=== PATIENT | female | born 1935 | race Caucasian/White ===

== ENCOUNTER → 2016-03-24 | Outpatient (CLI) | payer MEDICARE ==
[~2016-03-24] MED LIST: AVASINJ IV; BEVA100P INJ; BUPR100CR PO; BUPR150T3 PO; CYAN100025 IM; CYAN1000P SQ; GLUC500C3 PO; LEVO100T5 PO; LEXA10TA PO; LEXA5TAB PO; LOSA25TA PO; METHTAB PO; METO25 PO; MULT1CHW70 PO; SYNT88TA PO; estratest PO
--- NOTE | 2016-03-25 09:59 | RSPPFT ---
DATE OF PROCEDURE: 03/24/16 COMMENTS: Spirometry with FVC of 2.1 predicted 2.7, FEV1 of 1.5 predicted 1.9, FEV1/FVC ratio 70% predicted 88%. The FEF 25-75 is 0.9 predicted 2.1. Mild changes are noticed post-bronchodilator acutely. Air trapping is present with RV at 2.6 predicted 2.0. DLCO is within the predicted range. IMPRESSION: On the basis of the above, patient has a mild obstructive defect with responsiveness to acutely inhaled bronchodilator.
== END ==
LOC: HRSP 10:45
PROVIDERS: ATTEND Internal Medicine Pulmonary Disease
DX: J98.4 Other disorders of lung (principal)
CPT/HCPCS: 94060; 94620; 94726; 94729

== ENCOUNTER 2016-04-02 04:25 | Emergency (ER) | payer MEDICARE ==
[~2016-04-02] VITALS: Ht 165.1 cm; Wt 80.0 kg
[~2016-04-02 04:25] MED LIST changes: -BEVA100P INJ; -BUPR100CR PO; -CYAN1000P SQ; -LEVO100T5 PO; -LEXA10TA PO; -LOSA25TA PO; -MULT1CHW70 PO; -estratest PO
[2016-04-02 04:28] VITALS: BP 147/74; PULSE 78; RESP 16; TEMP 98; O2SAT 98
[2016-04-02] MEDS ORDERED: GLUC500C3 PO (04:50)
[2016-04-02] MEDS ORDERED: LOSA25TA PO (04:50)
[2016-04-02] MEDS ORDERED: MULT1CHW70 PO (04:50)
[2016-04-02] MEDS ORDERED: CYAN1000P SQ (04:50)
[2016-04-02] MEDS ORDERED: BUPR100CR PO (04:50)
[2016-04-02] MEDS ORDERED: LEXA10TA PO (04:50)
[2016-04-02] MEDS ORDERED: LEVO100T5 PO (04:50)
[2016-04-02] MEDS ORDERED: estratest PO (04:50)
[2016-04-02] MEDS ORDERED: BEVA100P INJ (04:50)
[2016-04-02] MEDS: ASPIRIN 81 MG CHEW TAB CHEW ONE ×2 (05:15→05:29)
[2016-04-02] MEDS ORDERED: SODIUM CHLORIDE 0.9% FLUSH 5 ML FLUSH IVF PRN (05:15)
[2016-04-02 05:40] LABS: AUTOMATED NEUTROPHIL # 5.4 TH/MM3 (1.8-7.7); BASOPHIL % 0.4 % (0.0-2.0); EOSINOPHIL # 0.1 TH/MM3 (0-0.4); EOSINOPHIL % 0.8 % (0.0-4.0); HEMATOCRIT 39.8 % (35.0-46.0); HEMO FLAGS DIFF FINAL; LYMPH % 27.1 % (9.0-44.0); LYMPHOCYTE # 2.3 TH/MM3 (1.0-4.8); MEAN CELL VOLUME 89.3 FL (80.0-100.0); MEAN CORPUSCULAR HEMOGLOBIN 30.3 PG (27.0-34.0); MEAN CORPUSCULAR HGB CONC 33.9 % (32.0-36.0); MONO % 7.3 % (0.0-8.0); NEUT % 64.4 % (16.0-70.0); PLATELET COUNT 249 TH/MM3 (150-450); RED BLOOD COUNT 4.45 MIL/MM3 (4.00-5.30); RED CELL DISTRIBUTION WIDTH 14.9 % (11.6-17.2); WHITE BLOOD COUNT 8.5 TH/MM3 (4.0-11.0)
--- NOTE | 2016-04-02 05:45 | RADRPT ---
EXAM DATE/TIME: 04/02/2016 05:25 [facility] COMPARISON: CHEST SINGLE AP, August 01, 2015, 15:56. INDICATIONS : Mid-sternal chest pain x 1 day. MEDICAL HISTORY : Thyroid disease, asthma SURGICAL HISTORY : Hysterectomy. Breast BX ENCOUNTER: Initial ACUITY: 1 day PAIN SCORE: 7/10 LOCATION: Bilateral chest FINDINGS: A single view of the chest demonstrates the lungs to be symmetrically aerated without evidence of mas s, infiltrate or effusion. The cardiomediastinal contours are unremarkable. Osseous structures are intact.CONCLUSION: No acute cardiopulmonary disease demonstrated. Saji Montana MD on April 02, 2016 at 5:43 Board Certified Radiologist. This report was verified electronically.
[2016-04-02 05:54] VITALS: O2SAT 97
[2016-04-02 06:01] LABS: ALKALINE PHOSPHATASE 79 U/L (45-117); TOTAL BILIRUBIN ADULT 0.8 MG/DL (0.2-1.0)
[2016-04-02 06:05] LABS: APTT (PATIENT) 23.8 SEC (24.3-30.1); INTERNATIONAL NORMALIZED RATIO 0.9 RATIO; PROTHROMBIN TIME - PATIENT 9.7 SEC (9.8-11.6)
[2016-04-02 06:23] LABS: ALT (GPT) 25 U/L (10-53); ANION GAP 8 MEQ/L (5-15); AST (GOT) 17 U/L (15-37); BICARBONATE 26.3 MEQ/L (21.0-32.0); BLOOD UREA NITROGEN 15 MG/DL (7-18); CHLORIDE 106 MEQ/L (98-107); GLOMERULAR FILTRATION RATE 52 ML/MIN (>89); MAGNESIUM 2.3 MG/DL (1.5-2.5); SODIUM (NA) 140 MEQ/L (136-145)
[2016-04-02 06:24] LABS: POTASSIUM 3.9 MEQ/L (3.5-5.1)
--- NOTE | 2016-04-02 06:35 | PD ---
HPI Chief Complaint: Chest Pain Time Seen by Provider: 04:58 Travel History International Travel<30 days: No Contact w/Intl Traveler<30days: No Traveled to known affect area: No History of Present Illness HPI This is a 80-year-old female who presents to the emergency department with 1 day of left-sided chest pressure, constant, mild, radiating to her left back. Patient denies any association with exertion, movement or eating. She initially thought it was indigestion but it persisted and continued into the speech therapist early intervention and she remembers reading that heart attacks often happen in the speech therapist early intervention and she came to the emergency department to be evaluated. She says that she was observed mid last year in the hospital for chest pain and had a normal stress test at that time. She follows with Dr. Hernandes as an outpatient. She has a history of hypertension. She's never smoked. PFSH Past Medical History Depression: Yes Cancer: No Cardiovascular Problems: Yes (HTN) Diabetes: No Diminished Hearing: No Endocrine: No Glaucoma: No Genitourinary: No Hepatitis: No Hiatal Hernia: No Hypertension: No Immune Disorder: No Musculoskeletal: No Neurologic: No Psychiatric: No Reproductive: No Respiratory: Yes (ASTHMA) Immunizations Current: Yes Thyroid Disease: Yes (HYPOTHYROID) Menopausal: Yes Past Surgical History Abdominal Surgery: No AICD: No Cardiac Surgery: No Ear Surgery: No Endocrine Surgery: No Eye Surgery: Yes (BILAT. CATARACTS) Genitourinary Surgery: No Gynecologic Surgery: Yes (HYSTERECTOMY) Hysterectomy: Yes Joint Replacement: No Neurologic Surgery: No Oral Surgery: No Pacemaker: No Thoracic Surgery: No Other Surgery: Yes (SINUS, BREAST BX.) Social History Alcohol Use: Yes (RARE) Tobacco Use: No Substance Use: No Allergies-Medications (Allergen,Severity, Reaction): Coded Allergies: Biaxin (Verified Allergy, Intermediate, RASH, 04/02/16) Talwin (Verified Adverse Reaction, Severe, HALLUCINATIONS, 04/02/16) Aspirin (Verified Adverse Reaction, Intermediate, 04/02/16) Reported Meds & Prescriptions Reported Meds & Active Scripts Active Reported Multivitamin Adult (Multiple Vitamins W/ Minerals) 1 Chw Chw 1 Chew PO DAILY Avastin Inj (Bevacizumab) 100 Mg/4 Ml Inj 1.25 Each INJ 3 MO PRN Losartan (Losartan Potassium) 25 Mg Tab 25 Mg PO DAILY Cyanocobalamin Inj (Cyanocobalamin) 1,000 Mcg/Ml Inj 1,000 Mcg SQ Q30D [estratest] 2 Tab PO DAILY Glucosamine (Glucosamine Sulfate) 500 Mg Cap 500 Mg PO DAILY Lexapro (Escitalopram Oxalate) 10 Mg Tab 10 Mg PO DAILY Wellbutrin SR 12 HR (Bupropion HCl) 100 Mg Tab 100 Mg PO DAILY Levothyroxine (Levothyroxine Sodium) 100 Mcg Tab 100 Mcg PO DAILY Review of Systems Except as stated in HPI: all other systems reviewed are Neg Physical Exam Narrative GENERAL:Well appearing, no acute distress SKIN: Warm and dry. HEAD: Atraumatic. Normocephalic. EYES: Pupils equal and round. No injection or drainage. ENT: Moist mucous membranes NECK: Trachea midline. CARDIOVASCULAR: Regular rate and rhythm. No murmur appreciated. RESPIRATORY: Clear to auscultation. Breath sounds equal bilaterally. GASTROINTESTINAL: Abdomen soft, non-tender, nondistended. MUSCULOSKELETAL: No obvious deformities. NEUROLOGICAL: Awake and alert. No obvious cranial nerve deficits. Moving all extremities. PSYCHIATRIC: Appropriate mood and affect; insight and judgment normal. Data Data Last Documented VS Vital Signs Date Time Temp Pulse Resp B/P Pulse Ox O2 Delivery O2 Flow Rate FiO2 04/02/16 05:54 98 Nasal Cannula 2 04/02/16 04:28 98.0 78 16 147/74 Orders Electrocardiogram (04/02/16 05:12) Complete Blood Count With Diff (04/02/16 05:12) Comprehensive Metabolic Panel (04/02/16 05:12) Magnesium (Mg) (04/02/16 05:12) Prothrombin Time / Inr (Pt) (04/02/16 05:12) Act Partial Throm Time (Ptt) (04/02/16 05:12) Troponin I (04/02/16 05:12) Chest, Single Ap (04/02/16 05:12) Ecg Monitoring (04/02/16 05:12) Bilateral Bp Monitoring (04/02/16 05:12) Iv Access Insert/Monitor (04/02/16 05:12) Oximetry (04/02/16 05:12) Oxygen Administration (04/02/16 05:12) Sodium Chloride 0.9% Flush (Ns Flush) (04/02/16 05:15) Aspirin Chew (Aspirin Chew) (04/02/16 05:15) Labs Laboratory Tests Test 04/02/16 05:15 White Blood Count 8.5 TH/MM3 Red Blood Count 4.45 MIL/MM3 Hemoglobin 13.5 GM/DL Hematocrit 39.8 % Mean Corpuscular Volume 89.3 FL Mean Corpuscular Hemoglobin 30.3 PG Mean Corpuscular Hemoglobin 33.9 % Concent Red Cell Distribution Width 14.9 % Platelet Count 249 TH/MM3 Mean Platelet Volume 7.7 FL Neutrophils (%) (Auto) 64.4 % Lymphocytes (%) (Auto) 27.1 % Monocytes (%) (Auto) 7.3 % Eosinophils (%) (Auto) 0.8 % Basophils (%) (Auto) 0.4 % Neutrophils # (Auto) 5.4 TH/MM3 Lymphocytes # (Auto) 2.3 TH/MM3 Monocytes # (Auto) 0.6 TH/MM3 Eosinophils # (Auto) 0.1 TH/MM3 Basophils # (Auto) 0.0 TH/MM3 CBC Comment DIFF FINAL Differential Comment Prothrombin Time 9.7 SEC Prothromb Time International 0.9 RATIO Ratio Activated Partial 23.8 SEC Thromboplast Time Sodium Level 140 MEQ/L Potassium Level 3.9 MEQ/L Chloride Level 106 MEQ/L Carbon Dioxide Level 26.3 MEQ/L Anion Gap 8 MEQ/L Blood Urea Nitrogen 15 MG/DL Creatinine 1.03 MG/DL Estimat Glomerular Filtration 52 ML/MIN Rate Random Glucose 110 MG/DL Calcium Level 8.9 MG/DL Magnesium Level 2.3 MG/DL Total Bilirubin 0.8 MG/DL Aspartate Amino Transf 17 U/L (AST/SGOT) Alanine Aminotransferase 25 U/L (ALT/SGPT) Alkaline Phosphatase 79 U/L Troponin I LESS THAN 0.02 NG/ML Total Protein 6.7 GM/DL Albumin 3.5 GM/DL [facility] Medical Decision Making Medical Screen Exam Complete: Yes Emergency Medical Condition: Yes Interpretation(s) EKG: Normal sinus rhythm, right bundle branch block unchanged from prior EKG No leukocytosis Electrolytes are reassuring Troponin is normal Chest x-ray: No acute process Differential Diagnosis Acute coronary syndrome, pneumonia, pulmonary embolism, GERD Narrative Course This is a 80-year-old female who presents to the emergency department with chest pain. She reports her chest pain is been constant over the past 12 hours. She had a stress test on August 02, 2015 which was normal. She was placed on a monitor and an IV was established. Labs are obtained which are reassuring with a normal troponin. Chest x-rays unremarkable and EKG is nonischemic and unchanged from prior. I think it's very unlikely that this reflects acute coronary syndrome given the patient has had a recent normal stress test within the past year, no new EKG changes and her chest pain has been constant for 12 hours in the setting of a normal troponin. 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 Diagnosis Primary Impression: Chest pain Qualified Code: R07.9 - Chest pain, unspecified type Patient Instructions: General Instructions Additional Instructions: If you develop severe chest pain, shortness of breath, sweating, lightheadedness , dizziness or difficulty breathing return to the emergency department immediately. Followup with your primary care physician in 2-3 days if your symptoms are not resolved. Med/Other Pt SpecificInfo: No Change to Meds Disposition: 01 DISCHARGE HOME Condition: Stable Lucero Encarnacion MD Apr 02, 2016 06:35
--- NOTE | 2016-04-02 13:14 | EKG ---
Date Performed: 04/02/2016 Time Performed: 04:43:12 PTAGE: 80 years EKG: Sinus rhythm RIGHT BUNDLE BRANCH BLOCK POSSIBLE LATERAL MYOCARDIAL INFARCTION ABNORMAL ECG Compared to prior trac ing no significant change PREVIOUS TRACING : 08/01/2015 21.48 DOCTOR: Ketan Spence Interpretating Date/Time 04/02/2016 13:12:11
== END 2016-04-02 07:15 | disposition home or self-care (01) ==
LOC: NEPC 04:25
DX: R07.89 Other chest pain (principal); R94.31 Abnormal electrocardiogram [ECG] [EKG]; I10 Essential (primary) hypertension
CPT/HCPCS: 71010; 80053; 83735; 84484; 85025; 85610; 85730; 93005

== ENCOUNTER 2016-11-25 08:59 | Inpatient (IN) | payer MEDICARE ==
[~2016-11-25] VITALS: Ht 165.1 cm; Wt 78.0 kg
[~2016-11-25 08:59] MED LIST changes: -AVASINJ IV; +BEVA100P INJ; +BUPR100CR PO; -BUPR150T3 PO; -CYAN100025 IM; +CYAN1000P SQ; +LEVO100T5 PO; +LEXA10TA PO; -LEXA5TAB PO; +LOSA25TA PO; -METHTAB PO; -METO25 PO; +MULT1CHW70 PO; -SYNT88TA PO; +estratest PO
[2016-11-25] MEDS ORDERED: IOHEXOL 350 MG/ML 10 ML VIAL (for RAD DIAG) IVCONTRAST ONE (09:00)
[2016-11-25 09:05] VITALS: BP 163/88; PULSE 74; RESP 16; TEMP 98.4; O2SAT 99
[2016-11-25 09:12] VITALS: BP 165/76; PULSE 67; RESP 18; TEMP 97.8; O2SAT 99
[2016-11-25] MEDS ORDERED: ESTR2TAB PO (09:25)
[2016-11-25] MEDS ORDERED: LEVO112T2 PO (09:25)
[2016-11-25] MEDS ORDERED: GLUC100017 PO (09:25)
[2016-11-25] MEDS ORDERED: RANI150T PO (09:29)
[2016-11-25] MEDS ORDERED: MONT10TA2 PO (09:31)
[2016-11-25] MEDS ORDERED: VITA2000 PO (09:31)
[2016-11-25] MEDS ORDERED: IPRA17I INH (09:32)
[2016-11-25] MEDS ORDERED: SODIUM CHLOR 0.9% 1000 ML INJ 1,000 ML IV ONE (09:45)
[2016-11-25 09:51] LABS: AUTOMATED NEUTROPHIL # 6.3 TH/MM3 (1.8-7.7); BASOPHIL # 0.1 TH/MM3 (0-0.2); BASOPHIL % 0.8 % (0.0-2.0); EOSINOPHIL # 0.1 TH/MM3 (0-0.4); EOSINOPHIL % 1.8 % (0.0-4.0); HEMATOCRIT 41.1 % (35.0-46.0); HEMO FLAGS DIFF FINAL; LYMPH % 12.9 % (9.0-44.0); LYMPHOCYTE # 1.1 TH/MM3 (1.0-4.8); MEAN CELL VOLUME 91.5 FL (80.0-100.0); MEAN CORPUSCULAR HEMOGLOBIN 30.8 PG (27.0-34.0); MEAN CORPUSCULAR HGB CONC 33.7 % (32.0-36.0); MONO % 7.8 % (0.0-8.0); NEUT % 76.7 % (16.0-70.0); PLATELET COUNT 326 TH/MM3 (150-450); RED BLOOD COUNT 4.49 MIL/MM3 (4.00-5.30); RED CELL DISTRIBUTION WIDTH 15.7 % (11.6-17.2); WHITE BLOOD COUNT 8.3 TH/MM3 (4.0-11.0)
--- NOTE | 2016-11-25 09:55 | PD ---
HPI Chief Complaint: Abdominal Pain Time Seen by Provider: 09:15 Travel History International Travel<30 days: No Contact w/Intl Traveler<30days: No Traveled to known affect area: No History of Present Illness HPI Mrs. Torres is a 81yoF with a past medical history of hypertension presenting to the ED with abdominal pain of about 2 weeks' duration. She states that her pain started 12 days ago. She went to see her PCP on that next day who referred her to GI. An endoscopy was performed 8 days ago which found a hiatal hernia but no other abnormalities. She was started on omeprazole and ranitidine. She states that she has been unable to keep the medication down. She describes her abdominal pain as a 10 out of 10 in her epigastric region radiating to her back. She describes it as a hard pain and constant, worse with eating and better with vomiting. Vomiting is clear, nonbloody, nonbilious. She last had a meal last night but it did not stay down. She has really been unable to eat for about a week. No fevers or chills, no diarrhea, no dizziness, no lightheadedness, no history of alcohol use. PFSH Past Medical History Depression: Yes Cancer: No Cardiovascular Problems: Yes (HTN ) Diabetes: No Diminished Hearing: No Endocrine: No GERD: Yes Glaucoma: No Genitourinary: No Hepatitis: No Hiatal Hernia: Yes Hypertension: No Immune Disorder: No Musculoskeletal: No Neurologic: No Psychiatric: No Reproductive: No Respiratory: Yes (ASTHMA ) Immunizations Current: Yes Thyroid Disease: Yes (HYPOTHYROID) Tetanus Vaccination: < 5 Years Influenza Vaccination: Yes ?: Not Menopausal: Yes Past Surgical History Abdominal Surgery: No AICD: No Cardiac Surgery: No Ear Surgery: No Endocrine Surgery: No Eye Surgery: Yes (BILAT. CATARACTS) Genitourinary Surgery: No Gynecologic Surgery: Yes (HYSTERECTOMY) Hysterectomy: Yes Joint Replacement: No Neurologic Surgery: No Oral Surgery: No Pacemaker: No Thoracic Surgery: No Other Surgery: Yes (SINUS, BREAST BX.) Social History Alcohol Use: Yes (RARE) Tobacco Use: No Substance Use: No Allergies-Medications (Allergen,Severity, Reaction): Coded Allergies: clarithromycin (Unverified Allergy, Intermediate, RASH, 11/25/16) pentazocine (Unverified Adverse Reaction, Severe, HALLUCINATIONS, 11/25/16) aspirin (Unverified Adverse Reaction, Intermediate, 11/25/16) Reported Meds & Prescriptions Reported Meds & Active Scripts Active Reported Atrovent HFA 12.9 GM Inh (Ipratropium [place]) 17 Mcg/Actuation Aer 2 Puff INH Q6HR PRN Vitamin D3 (Cholecalciferol) 2,000 Unit Cap 4,000 Units PO DAILY Singulair (Montelukast Sodium) 10 Mg Tab 10 Mg PO HS Ranitidine (Ranitidine HCl) 150 Mg Tab 150 Mg PO BID Estradiol 2 Mg Tab 2 Mg PO DAILY Glucosamine (Glucosamine Sulfate) 1,000 Mg Cap Unknown Dose PO DAILY Levothyroxine (Levothyroxine Sodium) 112 Mcg Tab 112 Mcg PO DAILY Avastin Inj (Bevacizumab) 100 Mg/4 Ml Inj 1.25 Each INJ 3 MO PRN Losartan (Losartan Potassium) 25 Mg Tab 25 Mg PO DAILY Cyanocobalamin Inj (Cyanocobalamin) 1,000 Mcg/Ml Inj 1,000 Mcg SQ Q30D Lexapro (Escitalopram Oxalate) 10 Mg Tab 10 Mg PO DAILY Review of Systems General / Constitutional: No: Fever, Chills Eyes: No: Blurred Vision HENT: Positive: Other (dry mouth), No: Lightheadedness Cardiovascular: Positive: Chest Pain or Discomfort (from vomiting) Respiratory: Positive: Shortness of Breath (asthma) Gastrointestinal: Positive: Nausea, Vomiting, No: Diarrhea, Constipation, Changes in Bowel Habits Neurologic: No: Dizziness Physical Exam Narrative GENERAL: Well-nourished, well-developed patient laying in bed, in no acute distress. SKIN: Warm and dry. HEAD: Normocephalic. EYES: No scleral icterus. No injection or drainage. THROAT: erythematous NECK: Supple, trachea midline. No JVD or lymphadenopathy. CARDIOVASCULAR: Regular rate and rhythm without murmurs, gallops, or rubs. RESPIRATORY: Breath sounds equal bilaterally. No accessory muscle use. GASTROINTESTINAL: Abdomen soft, exquisitely tender at RUQ, tenderness to palpation at epigastric and LUQ regions, nondistended. EXTREMITIES: No cyanosis, or edema. NEUROLOGICAL: Awake, alert. Non-focal. Data Data Last Documented VS Vital Signs Date Time Temp Pulse Resp B/P (MAP) Pulse Ox O2 Delivery O2 Flow Rate FiO2 11/25/16 09:12 97.8 67 18 165/76 (105) 99 Orders Orders Complete Blood Count With Diff (11/25/16 09:27) Comprehensive Metabolic Panel (11/25/16 09:27) Lipase (11/25/16 09:27) Sodium Chlor 0.9% 1000 Ml Inj (Ns 1000 M (11/25/16 09:45) Ct Abd/Pel W Iv Contrast(Rout) (11/25/16 ) Oral Contrast - Adult (11/25/16 09:51) Diatrizoate Liq ( Gastroview Liq) (11/25/16 09:56) Prochlorperazine Inj (Compazine Inj) (11/25/16 10:30) Prochlorperazine Inj (Compazine Inj) (11/25/16 10:45) Iohexol 350 Inj (Omnipaque 350 Inj) (11/25/16 09:00) Labs Laboratory Tests Test 11/25/16 09:30 White Blood Count 8.3 TH/MM3 Red Blood Count 4.49 MIL/MM3 Hemoglobin 13.8 GM/DL Hematocrit 41.1 % Mean Corpuscular Volume 91.5 FL Mean Corpuscular Hemoglobin 30.8 PG Mean Corpuscular Hemoglobin Concent 33.7 % Red Cell Distribution Width 15.7 % Platelet Count 326 TH/MM3 Mean Platelet Volume 8.1 FL Neutrophils (%) (Auto) 76.7 % Lymphocytes (%) (Auto) 12.9 % Monocytes (%) (Auto) 7.8 % Eosinophils (%) (Auto) 1.8 % Basophils (%) (Auto) 0.8 % Neutrophils # (Auto) 6.3 TH/MM3 Lymphocytes # (Auto) 1.1 TH/MM3 Monocytes # (Auto) 0.6 TH/MM3 Eosinophils # (Auto) 0.1 TH/MM3 Basophils # (Auto) 0.1 TH/MM3 CBC Comment DIFF FINAL Differential Comment Blood Urea Nitrogen 13 MG/DL Creatinine 0.85 MG/DL Random Glucose 129 MG/DL Total Protein 7.6 GM/DL Albumin 3.6 GM/DL Calcium Level 9.6 MG/DL Alkaline Phosphatase 665 U/L Aspartate Amino Transf (AST/SGOT) 886 U/L Alanine Aminotransferase (ALT/SGPT) 1269 U/L Total Bilirubin 6.4 MG/DL Sodium Level 133 MEQ/L Potassium Level 4.0 MEQ/L Chloride Level 98 MEQ/L Carbon Dioxide Level 27.7 MEQ/L Anion Gap 7 MEQ/L Estimat Glomerular Filtration Rate 65 ML/MIN Lipase 84 U/L [facility] Medical Decision Making Medical Screen Exam Complete: Yes Emergency Medical Condition: Yes Differential Diagnosis Cholecystitis vs pancreatitis vs gastroenteritis Narrative Course 81-year-old WF presenting with abdominal pain and vomiting 12 days duration. Physical exam shows tenderness in the right upper, epigastric and left upper quadrant regions of her abdomen. Lipase NL, elevated LFTs and Alk phos 1 L bolus CBC, CMP, lipase CT abdomen and pelvis with contrast Compazine for nausea Discussed with/Signed out to Chinyere Dao MD R1 Nov 25, 2016 09:55
[2016-11-25] MEDS ORDERED: DIATRIZOATE MEGLUM/DIATRIZOATE SOD 9 ML CUP ONE (09:56)
[2016-11-25 10:21] LABS: ANION GAP 7 MEQ/L (5-15); AST (GOT) 886 U/L (15-37); BICARBONATE 27.7 MEQ/L (21.0-32.0); BLOOD UREA NITROGEN 13 MG/DL (7-18); CHLORIDE 98 MEQ/L (98-107); GLOMERULAR FILTRATION RATE 65 ML/MIN (>89); SODIUM (NA) 133 MEQ/L (136-145)
[2016-11-25 10:30] LABS: ALKALINE PHOSPHATASE 665 U/L (45-117); ALT (GPT) 1269 U/L (10-53); TOTAL BILIRUBIN ADULT 6.4 MG/DL (0.2-1.0)
[2016-11-25] MEDS ORDERED: PROCHLORPERAZINE INJ 10 MG/2 ML VIAL IV PUSH ONE ×2 (10:30→10:45)
[2016-11-25] MEDS ORDERED: PHENYLEPH/NS 1000 MCG/10 ML SYR IV ONE (12:00)
[2016-11-25] MEDS ORDERED: MIDAZOLAM HCL 2 MG/2 ML VIAL IV ONE (12:00)
[2016-11-25] MEDS ORDERED: PROPOFOL 200 MG/20 ML AMP IV ONE (12:00)
--- NOTE | 2016-11-25 12:05 | RADRPT ---
EXAM DATE/TIME: 11/25/2016 11:36 [facility] COMPARISON: CT THORAX W/O CONTRAST, May 28, 2014, 9:40. INDICATIONS : Upper abdominal pain, nausea and vomiting. IV CONTRAST: 98 cc Omnipaque 350 (iohexol) IV ORAL CONTRAST: No oral contrast ingested. RADIATION DOSE: 10.27 CTDIvol (mGy) MEDICAL HISTORY : Hernia, hiatal. Hypertension. Asthma. SURGICAL HISTORY : Hysterectomy. ENCOUNTER: Initial ACUITY: 1 week PAIN SCALE: 5/10 LOCATION: Bilateral upper quadrant TECHNIQUE: Volumetric scanning of the abdomen and pelvis was performed. Using automated exposure control and ad justment of the mA and/or kV according to patient size, radiation dose was kept as low as reasonably achievable to obtain optimal diagnostic quality images. DICOM format image data is available electro nically for review and comparison. FINDINGS: There is a stable 1.4 x 1.2 cm spiculated nodule in the left lung base. This was previously biopsied. Moderate to severe intra-and extrahepatic ductal dilatation extending to the region of the ampulla. T here is subtle prominence of the central pancreatic duct. Pancreas demonstrates mild fatty replacemen t but is otherwise unremarkable without significant tail atrophy or definitive pancreatic head mass. There are no radiopaque stones noted in the gallbladder or common bile duct. Duodenum appears grossly unremarkable and there is no evidence for gastric distention. Several very small 2-4 mm regional nod es are demonstrated. Examination of the remainder of the abdomen demonstrates normal-appearing spleen and adrenal glands. Small hiatal hernia. Kidneys there is a symmetrical enhancement with a small 1.9 cm cyst in the infer ior pole of the right kidney. No evidence for hydronephrosis. Scattered colonic diverticula and moder ate sigmoid diverticulosis without significant inflammatory change. No evidence for bowel obstruction . No significant free fluid or clinical fluid collection in the abdomen. Abdominal aorta is normal in caliber. Bladder is distended but otherwise unremarkable by CT. Uterus is surgically absent. There are no defi nite focal abnormal lytic or blastic bony lesions. CONCLUSION: 1. Abnormal examination demonstrating moderate to severe diffuse intra-and extrahepatic biliary ducta l dilatation extending to the ampulla. Etiology of this obstruction is not definitively identified on the CT exam. The proximal pancreatic duct is dilated, however, the pancreas otherwise is unremarkabl e without a definite pancreatic head mass or tail atrophy. No radiopaque gallstones or CBD stones are demonstrated. No definitive duodenal mass. Consider further evaluation with ERCP and possibly endosc opic ultrasound. 2. Ancillary findings, as above. Vinny Cordero MD on November 25, 2016 at 11:51 Board Certified Radiologist. This report was verified electronically.
--- NOTE | 2016-11-25 13:53 | PD.CONS ---
HPI History of Present Illness This is a 81 year old female who came to the emergency room for evaluation of abdominal pain with nausea/vomiting. Her symptoms began a week ago Monday while she was out of town in [place]. She has epigastric pain that is a dull ache, constant that radiates up her chest/esophagus and to her back. She also has associated nausea/vomiting with this consisting of undigested foods. She denies any diarrhea, constipation, or blood in her stool. She has had some mild weight loss. She does have some jaundice, but did not notice this until she came in. Her symptoms are aggravated by po intake, but also there when she does not eat. She came back from [place] and saw Dr. Harris and underwent evaluation with EGD (11/17/16)----> reflux esophagitis in the distal esophagus, acute gastritis was found in the gastric antrum, the duodenal mucosa showed no abnormalities in the 2nd portion of the duodenum, retroflexed views revealed a hiatal hernia. Pathology pending. CT Scan abdomen and pelvis (09/17/16)---> No renal stones or hydronephrosis, induration in the subcutaneous fat at the left posterior lateral upper pelvic region at the level of the iliac crest which is likely from prior injury. This can be correlated with the patient's symptoms, colonic diveritcular and a moderate amount of stool the colon. Mild hiatal hernia. She was instructed to take Omeprazole 20mg po daily and Ranitidine 300mg po qhs. She has been taking this, but states that her symptoms have not improved. Her symptoms suddenly became worse last night and therefore she took a dose of a GI cocktail with mylanta/lidocaine, but she did not have any improvement. She was not able to keep anything down and therefore came to the ER for further evaluation. CT Scan abdomen and pelvis (11/25/16)----> Abnormal examination demonstrating moderate to severe diffuse intra- and extrahepatic biliary ductal dilatation extending to the ampulla. Etiology of this obstruction is not defintely identified on the CT exam. The proximal pancreatic duct is dilated, however the pancreas otherwise is unremarkable without a definite pancreatic head mass or tail atrophy. No radiopaque gallstones or CBD stones are demonstrated. No definite duodenal mass. Consider ERCP and possibly endoscopic US. Of note, her last colonoscopy was with Dr. Hernandes (07/07/14)---> Moderate diverticular disease in sigmoid colon without inflammation, recommend repeat colonoscopy 5 years. (Dorie Baird) PFSH Past Medical History Hiatal hernia Asthma HTN Angina Macular degeneration B12 deficiency Atherosclerosis Anxiety Chronic sinusitis Diverticulosis GERD Hyperlipidemia Irritable bowel syndrome Hypothyroidism Osteoarthritis Paroxysmal supraventricular Past Surgical History EGD Vaginal hysterectomy Left breast lumpectomy Colonoscopy Sinus surgery Cataract surgery (Dorie Baird) Coded Allergies: clarithromycin (Unverified Allergy, Intermediate, RASH, 11/25/16) pentazocine (Unverified Adverse Reaction, Severe, HALLUCINATIONS, 11/25/16) aspirin (Unverified Adverse Reaction, Intermediate, 11/25/16) Medications Allergies Coded Allergies Type Severity Reaction Last Updated Verified clarithromycin Allergy Intermediate RASH 11/25/16 No pentazocine Adverse Reaction Severe HALLUCINATIONS 11/25/16 No aspirin Adverse Reaction Intermediate 11/25/16 No Active Scripts Medications Dose Route/Sig Max Daily Dose Days Date Category Atrovent HFA 12.9 GM Inh (Ipratropium [place]) 17 Mcg/Actuation Aer 2 Puff INH Q6HR PRN 11/25/16 Reported Vitamin D3 (Cholecalciferol) 2,000 Unit Cap 4,000 Units PO DAILY 11/25/16 Reported Singulair (Montelukast Sodium) 10 Mg Tab 10 Mg PO HS 11/25/16 Reported Ranitidine (Ranitidine HCl) 150 Mg Tab 150 Mg PO BID 11/25/16 Reported Estradiol 2 Mg Tab 2 Mg PO DAILY 11/25/16 Reported Glucosamine (Glucosamine Sulfate) 1,000 Mg Cap Unknown Dose PO DAILY 11/25/16 Reported Levothyroxine (Levothyroxine Sodium) 112 Mcg Tab 112 Mcg PO DAILY 11/25/16 Reported Avastin Inj (Bevacizumab) 100 Mg/4 Ml Inj 1.25 Each INJ 3 MO PRN 04/02/16 Reported Losartan (Losartan Potassium) 25 Mg Tab 25 Mg PO DAILY 04/02/16 Reported Cyanocobalamin Inj (Cyanocobalamin) 1,000 Mcg/Ml Inj 1,000 Mcg SQ Q30D 04/02/16 Reported Lexapro (Escitalopram Oxalate) 10 Mg Tab 10 Mg PO DAILY 04/02/16 Reported Family History Mother had breast cancer Maternal aunt and uncle had colon cancer Social History Never smoked. No ETOH, No illicit drugs (Dorie Baird) Review of Systems Constitutional: COMPLAINS OF: Fatigue, DENIES: Fever, Chills Respiratory: DENIES: Cough Cardiovascular: DENIES: Chest pain Gastrointestinal: COMPLAINS OF: Abdominal pain, Nausea, Vomiting, DENIES: Black stools, Bloody stools, Constipation, Diarrhea, Swelling of Abdomen Integumentary: COMPLAINS OF: Jaundice Immunologic/allergic: DENIES: Eczema Neurologic: DENIES: Headache Psychiatric: DENIES: Confusion (Dorie Baird) GI Exam Vitals I&O Vital Signs Date Time Temp Pulse Resp B/P (MAP) Pulse Ox O2 Delivery O2 Flow Rate FiO2 11/25/16 09:12 97.8 67 18 165/76 (105) 99 11/25/16 09:05 98.4 74 16 163/88 (113) 99 Imaging Last Impressions Abdomen/Pelvis CT 11/25/16 0000 Signed Impressions: Service Date/Time: Friday, November 25, 2016 11:36 - CONCLUSION: 1. Abnormal examination demonstrating moderate to severe diffuse intra-and extrahepatic biliary ductal dilatation extending to the ampulla. Etiology of this obstruction is not definitively identified on the CT exam. The proximal pancreatic duct is dilated, however, the pancreas otherwise is unremarkable without a definite pancreatic head mass or tail atrophy. No radiopaque gallstones or CBD stones are demonstrated. No definitive duodenal mass. Consider further evaluation with ERCP and possibly endoscopic ultrasound. 2. Ancillary findings, as above. Vinny Cordero MD Laboratory Test 11/25/16 09:30 White Blood Count 8.3 TH/MM3 Red Blood Count 4.49 MIL/MM3 Hemoglobin 13.8 GM/DL Hematocrit 41.1 % Mean Corpuscular Volume 91.5 FL Mean Corpuscular Hemoglobin 30.8 PG Mean Corpuscular Hemoglobin Concent 33.7 % Red Cell Distribution Width 15.7 % Platelet Count 326 TH/MM3 Mean Platelet Volume 8.1 FL Neutrophils (%) (Auto) 76.7 % Lymphocytes (%) (Auto) 12.9 % Monocytes (%) (Auto) 7.8 % Eosinophils (%) (Auto) 1.8 % Basophils (%) (Auto) 0.8 % Neutrophils # (Auto) 6.3 TH/MM3 Lymphocytes # (Auto) 1.1 TH/MM3 Monocytes # (Auto) 0.6 TH/MM3 Eosinophils # (Auto) 0.1 TH/MM3 Basophils # (Auto) 0.1 TH/MM3 CBC Comment DIFF FINAL Differential Comment Blood Urea Nitrogen 13 MG/DL Creatinine 0.85 MG/DL Random Glucose 129 MG/DL Total Protein 7.6 GM/DL Albumin 3.6 GM/DL Calcium Level 9.6 MG/DL Alkaline Phosphatase 665 U/L Aspartate Amino Transf (AST/SGOT) 886 U/L Alanine Aminotransferase (ALT/SGPT) 1269 U/L Total Bilirubin 6.4 MG/DL Sodium Level 133 MEQ/L Potassium Level 4.0 MEQ/L Chloride Level 98 MEQ/L Carbon Dioxide Level 27.7 MEQ/L Anion Gap 7 MEQ/L Estimat Glomerular Filtration Rate 65 ML/MIN Lipase 84 U/L Physical Examination HEENT: Normocephalic; atraumatic; no jaundice. CHEST: CTA CARDIAC: RRR. ABDOMEN: Soft, mildly bloated, mild epigastric tenderness; no hepatosplenomegaly; bowel sounds are present in all four quadrants. EXTREMITIES: No clubbing, cyanosis, or edema. SKIN: Mild jaundice. 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 (Dorie Baird) Assessment and Plan Plan ASSESSMENT: - Abdominal pain, N/V with Biliary obstruction on imaging. 1 week hx of epigastric pain, n/v, inability to tolerate po. She was seen by Dr. Harris and had EGD (11/17/16)----> reflux esophagitis in the distal esophagus, acute gastritis was found in the gastric antrum, the duodenal mucosa showed no abnormalities in the 2nd portion of the duodenum, retroflexed views revealed a hiatal hernia. Pathology pending. He then ordered CT Scan abdomen and pelvis (09/17/16 )---> No renal stones or hydronephrosis, induration in the subcutaneous fat at the left posterior lateral upper pelvic region at the level of the iliac crest which is likely from prior injury. This can be correlated with the patient's symptoms, colonic diverticular and a moderate amount of stool the colon. Mild hiatal hernia. She started Omeprazole 20mg po daily and Ranitidine 300mg po qhs, but had worsening of symptoms last night. She came to ER and was found to have LFTs elevated in obstructive pattern. CT Scan abdomen and pelvis (11/25/16)----> Abnormal examination demonstrating moderate to severe diffuse intra- and extrahepatic biliary ductal dilatation extending to the ampulla. Etiology of this obstruction is not defintely identified on the CT exam. The proximal pancreatic duct is dilated, however the pancreas otherwise is unremarkable without a definite pancreatic head mass or tail atrophy. No radiopaque gallstones or CBD stones are demonstrated. No definite duodenal mass. Consider ERCP and possibly endoscopic US. Of note , these findings were not appreciated on recent CT with contrast from 11/18/16. T. Bili 6.4, AST 886, ALT 1269, Alk Phosph 665. No significant weight loss, fevers, chills. NPO. Will plan for ERCP today. - Elevated LFTs, secondary to above. Plan for ERCP today. - GERD, HH. PPI - Asthma, HTN, Anxiety, Atherosclerosis, Hyperlipidemia, Hypothyroidism, OA per attending PLAN: - Plan for ERCP with possible sphincterotomy, possible stent placement today - Obtain consents - NPO - Protonix 40mg IV daily - IVF - CBC, CMP in am - Further recommendations to follow based on results of above - Pt seen and examined by Dr. Barbosa and myself and this note is written on his behalf (Dorie Baird) Plan Patient was seen and examined, agree with the above note, we will plan on ERCP today (Ranjith Barbosa MD) Dorie Baird Nov 25, 2016 13:53 Ranjith Barbosa MD Nov 25, 2016 17:42
[2016-11-25 14:17] VITALS: BP 169/80; PULSE 82; RESP 16; O2SAT 97
[2016-11-25] MEDS ORDERED: IPRATROPIUM BROMIDE 17 MCG/ACT 12.9 GM INHALER INH PRN (15:30)
[2016-11-25] MEDS: PANTOPRAZOLE SODIUM 40 MG VIAL IV PUSH SCH (15:31)
[2016-11-25] MEDS ORDERED: ONDANSETRON HCL 4 MG/2 ML VIAL IV PRN (15:45)
[2016-11-25] MEDS: SODIUM CHLOR 0.9% 1000 ML INJ 1,000 ML IV SCH (15:45)
[2016-11-25] MEDS ORDERED: RESP: IPRATROPIUM 0.5 MG/2.5 ML NEB NEB PRN (16:00)
[2016-11-25] MEDS ORDERED: MORPHINE SULFATE 2 MG/ML INJ IV PUSH PRN (16:45)
--- NOTE | 2016-11-25 16:55 | HHI.HP ---
HPI Service [facility] Hospitalists Primary Care Physician Bal Morgan MD Admission Diagnosis Biliary obstruction, intractable nausea vomiting. Chief Complaint: Abdominal pain, nausea/vomiting Travel History International Travel<30 Days: No Contact w/Intl Traveler <30 Da: No Traveled to Known Affected Are: No History of Present Illness Mrs. Torres is a pleasant 81 y/o female with asthma, HTN, macular degeneration , and GERD. [place] [facility] [place] for evaluation of abdominal pain with nausea/vomiting. Her symptoms began over a week ago while she was out of town in [place]. She initially noted epigastric pain which she described as a dull ache which was constant and radiated up her chest/esophagus and to her back. She had associated nausea/vomiting with this consisting of undigested foods. Her symptoms are aggravated by po intake, but reported that it was also there when she does not eat. She came back from [place] and saw Dr. Harris and underwent evaluation with EGD (11/17/16) which noted reflux esophagitis in the distal esophagus, acute gastritis was found in the gastric antrum, the duodenal mucosa showed no abnormalities in the 2nd portion of the duodenum, and a hiatal hernia. She was instructed to take Omeprazole 20mg po daily and Ranitidine 300mg po qhs. She has been taking this, but states that her symptoms have not improved. Her symptoms suddenly became worse last night and therefore she took a dose of a GI cocktail with Mylanta/viscous lidocaine, but she did not have any improvement. She was not able to keep anything down and therefore came to the ER for further evaluation. CT Scan abdomen and pelvis in the ED noted moderate to severe diffuse intra- and extrahepatic biliary ductal dilatation extending to the ampulla, etiology of this obstruction is not definitively identified on the CT exam, also noted the proximal pancreatic duct is dilated, however the pancreas otherwise is unremarkable without a definite pancreatic head mass or tail atrophy. No radiopaque gallstones or CBD stones are demonstrated. No definite duodenal mass. Pts LFTs were significantly elevated at admission with TBili 6.4, AST 886 , ALT 1269, and AlkPhos 665. Review of Systems Constitutional: COMPLAINS OF: Weight loss, DENIES: Diaphoretic episodes, Fever , Chills Eyes: DENIES: Vision loss Ears, nose, mouth, throat: DENIES: Hearing loss Respiratory: DENIES: Cough, Shortness of breath Cardiovascular: DENIES: Chest pain, Palpitations, Lower Extremity Edema Gastrointestinal: COMPLAINS OF: Abdominal pain, Nausea, Reflux, Vomiting, DENIES: Black stools, Bloody stools, Constipation, Diarrhea Genitourinary: DENIES: Urgency, Hematuria, Dysuria Musculoskeletal: COMPLAINS OF: Back pain, DENIES: Neck pain Integumentary: DENIES: Rash Neurologic: DENIES: Headache Psychiatric: DENIES: Confusion Past Family Social History Past Medical History Hiatal hernia Asthma HTN Angina Macular degeneration B12 deficiency Atherosclerosis Anxiety Chronic sinusitis Diverticulosis GERD Hyperlipidemia Irritable bowel syndrome Hypothyroidism Osteoarthritis Paroxysmal supraventricular Past Surgical History EGD Colonoscopy (07/07/14)--> Moderate diverticular disease in sigmoid colon without inflammation, recommend repeat colonoscopy 5 years. Vaginal hysterectomy Left breast lumpectomy Colonoscopy Sinus surgery Cataract surgery Reported Medications Atrovent HFA 12.9 GM Inh (Ipratropium [place]) 17 Mcg/Actuation Aer 2 Puff INH Q6HR PRN Vitamin D3 (Cholecalciferol) 2,000 Unit Cap 4,000 Units PO DAILY Singulair (Montelukast Sodium) 10 Mg Tab 10 Mg PO HS Ranitidine (Ranitidine HCl) 150 Mg Tab 150 Mg PO BID Estradiol 2 Mg Tab 2 Mg PO DAILY Glucosamine (Glucosamine Sulfate) 1,000 Mg Cap Unknown Dose PO DAILY Levothyroxine (Levothyroxine Sodium) 112 Mcg Tab 112 Mcg PO DAILY Avastin Inj (Bevacizumab) 100 Mg/4 Ml Inj 1.25 Each INJ 3 MO PRN Losartan (Losartan Potassium) 25 Mg Tab 25 Mg PO DAILY Cyanocobalamin Inj (Cyanocobalamin) 1,000 Mcg/Ml Inj 1,000 Mcg SQ Q30D Lexapro (Escitalopram Oxalate) 10 Mg Tab 10 Mg PO DAILY Allergies: Coded Allergies: clarithromycin (Unverified Allergy, Intermediate, RASH, 11/25/16) pentazocine (Unverified Adverse Reaction, Severe, HALLUCINATIONS, 11/25/16) aspirin (Unverified Adverse Reaction, Intermediate, 11/25/16) Family History Noncontributory Social History Denies any alcohol, tobacco or illicit drug use Pt lives locally with her Physical Exam Vital Signs Vital Signs Date Time Temp Pulse Resp B/P (MAP) Pulse Ox O2 Delivery O2 Flow Rate FiO2 11/25/16 14:17 82 16 169/80 (109) 97 11/25/16 09:12 97.8 67 18 165/76 (105) 99 11/25/16 09:05 98.4 74 16 163/88 (113) 99 Physical Exam GENERAL: This is a well-nourished, well-developed patient, in no apparent distress. SKIN: Jaundice HEENT: Atraumatic. Normocephalic. No temporal or scalp tenderness. No scleral icterus. Airway patent. NECK: Trachea midline, supple, nontender. CARDIO: Regular. RESP: CTA bilaterally. No wheezes, rales, or rhonchi. ABD: +BS, soft, epigastric tenderness, nondistended. EXT: Extremities without clubbing, cyanosis, or edema. NEURO: Awake and alert. Motor and sensory grossly within normal limits. Normal speech. Laboratory Laboratory Tests Test 11/25/16 09:30 White Blood Count 8.3 Red Blood Count 4.49 Hemoglobin 13.8 Hematocrit 41.1 Mean Corpuscular Volume 91.5 Mean Corpuscular Hemoglobin 30.8 Mean Corpuscular Hemoglobin Concent 33.7 Red Cell Distribution Width 15.7 Platelet Count 326 Mean Platelet Volume 8.1 Neutrophils (%) (Auto) 76.7 Lymphocytes (%) (Auto) 12.9 Monocytes (%) (Auto) 7.8 Eosinophils (%) (Auto) 1.8 Basophils (%) (Auto) 0.8 Neutrophils # (Auto) 6.3 Lymphocytes # (Auto) 1.1 Monocytes # (Auto) 0.6 Eosinophils # (Auto) 0.1 Basophils # (Auto) 0.1 CBC Comment DIFF FINAL Differential Comment Blood Urea Nitrogen 13 Creatinine 0.85 Random Glucose 129 Total Protein 7.6 Albumin 3.6 Calcium Level 9.6 Alkaline Phosphatase 665 Aspartate Amino Transf (AST/SGOT) 886 Alanine Aminotransferase (ALT/SGPT) 1269 Total Bilirubin 6.4 Sodium Level 133 Potassium Level 4.0 Chloride Level 98 Carbon Dioxide Level 27.7 Anion Gap 7 Estimat Glomerular Filtration Rate 65 Lipase 84 Result Diagram: 11/25/1692911/25/16929 Imaging Last Impressions Abdomen/Pelvis CT 11/25/16 0000 Signed Impressions: Service Date/Time: Friday, November 25, 2016 11:36 - CONCLUSION: 1. Abnormal examination demonstrating moderate to severe diffuse intra-and extrahepatic biliary ductal dilatation extending to the ampulla. Etiology of this obstruction is not definitively identified on the CT exam. The proximal pancreatic duct is dilated, however, the pancreas otherwise is unremarkable without a definite pancreatic head mass or tail atrophy. No radiopaque gallstones or CBD stones are demonstrated. No definitive duodenal mass. Consider further evaluation with ERCP and possibly endoscopic ultrasound. 2. Ancillary findings, as above. Vinny Cordero MD Septic Shock Reassessment Heart: Regular rate and rhythm Lungs: Clear Skin: Warm Caprini VTE Risk Assessment Caprini VTE Risk Assessment: Mod/High Risk (score >= 2) Caprini Risk Assessment Model Point Value = 1 Point Value = 2 Point Value = 3 Point Value = 5 Age 41-60 Minor surgery BMI > 25 kg/m2 Swollen legs Varicose veins or History of unexplained or recurrent spontaneous Oral contraceptives or hormone replacement Sepsis (< 1 month) Serious lung disease, including pneumonia (< 1 month) Abnormal pulmonary function Acute myocardial infarction Congestive heart failure (< 1 month) History of inflammatory bowel disease Medical patient at bed rest Age 61-74 Arthroscopic surgery Major open surgery (> 45 min) Laparoscopic surgery (> 45 min) Malignancy Confined to bed (> 72 hours) Immobilizing plaster cast Central venous access Age >= 75 History of VTE Family history of VTE Factor V Leiden Prothrombin [id number] Lupus anticoagulant Anticardiolipin antibodies Elevated serum homocysteine Heparin-induced thrombocytopenia Other congenital or acquired thrombophilia Stroke (< 1 month) Elective arthroplasty Hip, pelvis, or leg fracture Acute spinal cord injury (< 1 month) Prophylaxis Regimen Total Risk Factor Score Risk Level Prophylaxis Regimen 0-1 Low Early ambulation 2 Moderate Order ONE of the following: *Sequential Compression Device (SCD) *Heparin 5000 units SQ BID 3-4 Higher Order ONE of the following medications: *Heparin 5000 units SQ TID *Enoxaparin/Lovenox 40 mg SQ daily (WT < 150 kg, CrCl > 30 mL/min) *Enoxaparin/Lovenox 30 mg SQ daily (WT < 150 kg, CrCl > 10-29 mL/min) *Enoxaparin/Lovenox 30 mg SQ BID (WT < 150 kg, CrCl > 30 mL/min) AND/OR *Sequential Compression Device (SCD) 5 or more Highest Order ONE of the following medications: *Heparin 5000 units SQ TID (Preferred with Epidurals) *Enoxaparin/Lovenox 40 mg SQ daily (WT < 150 kg, CrCl > 30 mL/min) *Enoxaparin/Lovenox 30 mg SQ daily (WT < 150 kg, CrCl > 10-29 mL/min) *Enoxaparin/Lovenox 30 mg SQ BID (WT < 150 kg, CrCl > 30 mL/min) AND *Sequential Compression Device (SCD) Assessment and Plan Problem List: (1) Obstructive jaundice ICD Codes: K83.8 - Other specified diseases of biliary tract Status: Acute Plan: - Pt is a 81 y/o female with asthma, HTN, macular degeneration, and GERD. - [place] [facility] [place] for evaluation of abdominal pain with nausea/vomiting which began over a week ago - She underwent evaluation with EGD (11/17/16) which noted reflux esophagitis in the distal esophagus, acute gastritis was found in the gastric antrum, the duodenal mucosa showed no abnormalities in the 2nd portion of the duodenum, and a hiatal hernia. - She has been taking Omeprazole 20mg po daily and Ranitidine 300mg po qhs without improvement. - Her symptoms suddenly became worse last night and was not able to keep anything down and therefore came to the ER for further evaluation. - CT Scan abd/pelvis in the ED noted moderate to severe diffuse intra- and extrahepatic biliary ductal dilatation extending to the ampulla, etiology of this obstruction is not definitively identified on the CT exam, also noted the proximal pancreatic duct is dilated, however the pancreas otherwise is unremarkable without a definite pancreatic head mass or tail atrophy. No radiopaque gallstones or CBD stones are demonstrated. No definite duodenal mass. - Pts LFTs were significantly elevated at admission with TBili 6.4, AST 886, ALT 1269, and AlkPhos 665. - GI has been consulted and pt is planned for ERCP today - IVF - Pain control PRN - Antiemetics PRN - Monitor labs - Supportive care - DVT prophylaxis with SCDs (2) Elevated LFTs ICD Codes: R79.89 - Other specified abnormal findings of blood chemistry Status: Acute Plan: - See above. (3) HTN (hypertension) ICD Codes: I10 - Essential (primary) hypertension Status: Acute Plan: - Home meds continued - Monitor Physician Certification 2 Midnight Certification Type: Admission for Inpatient Services Order for Inpatient Services The services are ordered in accordance with Medicare regulations or non- Medicare payer requirements, as applicable. In the case of services not specified as inpatient-only, they are appropriately provided as inpatient services in accordance with the 2-midnight benchmark. Estimated LOS (days): 3 3 days is the estimated time the patient will need to remain in the hospital, assuming treatment plan goals are met and no additional complications. Post-Hospital Plan: Not yet determined Asha Teixeira Nov 25, 2016 16:55
[2016-11-25] MEDS ORDERED: ENALAPRILAT 1.25 MG/ML VIAL IV PUSH PRN (17:00)
[2016-11-25] MEDS ORDERED: IOHEXOL 350 MG/ML 50 ML BTL (for RAD DIAG) OTHER ONE (17:27)
--- NOTE | 2016-11-25 17:46 | PD.PROCEDR ---
GI Procedure PROCEDURE PERFORMED ERCP, sphincterotomy, stone removal by balloon sweep INDICATION FOR PROCEDURE Abdominal pain elevated liver function test, dilated common bile duct on CT scan PROCEDURE: The procedure, risks and benefits were discussed with Ms. Torres and informed consent was obtained. Anesthesia sedated her with Diprivan. [] ERCP: Patient was placed in a prone position. The Pentax videoscope was introduced through the oropharynx and advanced to the second portion of the duodenum where the ampula was identified. The ampulla was very prominent consistent with possible tumor or impacted stone, cannulation was performed, sphincterotomy was done and significant amount of bile came out, sweeping the duct with 12 and 15 mm balloon revealed 1 large stone about 1-1/2 cm most likely the one which was impacted in the ampulla, the ampulla came back to normal size after that, and of the case included occluded cholangiogram did not show any filling defect patient tolerated procedure well, the scope was brought back without immediate complication FINDINGS: Dilated common bile duct, Dilated pancreatic duct Stone impaction in the ampulla removed by balloon after sphincterotomy ESTIMATED BLOOD LOSS: None SPECIMENS REMOVED: None COMPLICATIONS: No immediate complication IMPRESSION: Common bile duct stone removal as above PLAN: Nothing by mouth until the morning and advance as tolerated Check liver function tests in the morning Ranjith Barbosa MD Nov 25, 2016 17:46
--- NOTE | 2016-11-25 18:07 | RADRPT ---
EXAM DATE/TIME: 11/25/2016 17:28 [place] COMPARISON: No previous studies available for comparison. INDICATIONS : Obstruction from stone, sphincterotomy. FLUORO TIME: 2.5 minutes IMAGE COUNT: 2 CONTRAST: Instilled by Ordering Physician MEDICAL HISTORY : Hernia, hiatal. Hypertension. Asthma. SURGICAL HISTORY : Hysterectomy. ENCOUNTER: Initial ACUITY: 1 day PAIN SCORE: Non-responsive. LOCATION: Abdomen FINDINGS: An ERCP was performed by the ordering physician. The images demonstrate cannulation of the common bile duct and injection of contrast material which r eveals a dilated duct. No definite filling defects on these limited images. CONCLUSION: ERCP as above. Andrés Carcamo MD on November 25, 2016 at 18:05 Board Certified Radiologist. This report was verified electronically.
[2016-11-25] MEDS ORDERED: DO NOT ADM ANY ANTICOAGULANT DRUGS PRN (19:00)
[2016-11-25 20:00] VITALS: BP 113/62; PULSE 77; RESP 18; TEMP 99; O2SAT 96
[2016-11-25] MEDS: MONTELUKAST SODIUM 10 MG TAB PO SCH (22:39)
[2016-11-26] VITALS: BP 121/57; PULSE 74; RESP 18; TEMP 98.4; O2SAT 96
[2016-11-26] MEDS: SODIUM CHLOR 0.9% 1000 ML INJ 1,000 ML IV SCH ×3 (03:20→21:45)
[2016-11-26 04:00] VITALS: BP 117/58; PULSE 72; RESP 18; TEMP 98.6; O2SAT 96
[2016-11-26] MEDS: ACETAMINOPHEN 325 MG TAB PO PRN ×3 (05:35→23:39)
[2016-11-26 06:47] LABS: AUTOMATED NEUTROPHIL # 5.6 TH/MM3 (1.8-7.7); BASOPHIL % 0.4 % (0.0-2.0); EOSINOPHIL # 0.1 TH/MM3 (0-0.4); EOSINOPHIL % 1.6 % (0.0-4.0); HEMATOCRIT 36.8 % (35.0-46.0); HEMO FLAGS DIFF FINAL; LYMPH % 16.5 % (9.0-44.0); LYMPHOCYTE # 1.2 TH/MM3 (1.0-4.8); MEAN CELL VOLUME 91.5 FL (80.0-100.0); MEAN CORPUSCULAR HEMOGLOBIN 30.3 PG (27.0-34.0); MEAN CORPUSCULAR HGB CONC 33.1 % (32.0-36.0); MONO % 7.3 % (0.0-8.0); NEUT % 74.2 % (16.0-70.0); PLATELET COUNT 276 TH/MM3 (150-450); RED BLOOD COUNT 4.03 MIL/MM3 (4.00-5.30); RED CELL DISTRIBUTION WIDTH 15.6 % (11.6-17.2); WHITE BLOOD COUNT 7.5 TH/MM3 (4.0-11.0)
[2016-11-26 07:08] LABS: INDIRECT BILIRUBIN 2.1 MG/DL (0.0-0.8); TOTAL BILIRUBIN ADULT 8.9 MG/DL (0.2-1.0)
[2016-11-26 08:00] VITALS: BP 134/67; PULSE 69; RESP 16; TEMP 97.6; O2SAT 94
[2016-11-26] MEDS: ESCITALOPRAM OXALATE 10 MG TAB PO SCH (08:45)
[2016-11-26] MEDS: ESTRADIOL 1 MG TAB PO SCH (08:45)
[2016-11-26] MEDS: LEVOTHYROXINE SODIUM 112 MCG TAB PO SCH (08:45)
[2016-11-26] MEDS: LOSARTAN 25 MG TAB PO SCH (08:46)
--- NOTE | 2016-11-26 11:19 | HHI.PR ---
Subjective Remarks feels much better. Objective Vitals heart reg lung cta abd s/nt ext no edema Vital Signs Date Time Temp Pulse Resp B/P (MAP) Pulse Ox O2 Delivery O2 Flow Rate FiO2 11/26/16 08:00 97.6 69 16 134/67 (89) 94 11/26/16 06:45 19 11/26/16 04:00 98.6 72 18 117/58 (77) 96 11/26/16 00:00 98.4 74 18 121/57 (78) 96 11/25/16 20:00 99.0 77 18 113/62 (79) 96 11/25/16 18:30 98.9 79 20 108/59 (75) 98 Nasal Cannula 2 11/25/16 18:15 80 20 107/56 (73) 98 Nasal Cannula 2 11/25/16 18:00 82 20 109/58 (75) 98 Nasal Cannula 2 11/25/16 17:51 98.9 90 20 115/55 (75) 97 Nasal Cannula 2 11/25/16 14:17 82 16 169/80 (109) 97 11/26/16 11/26/16 11/27/16 15:00 23:00 07:00 # Voids 2 Result Diagram: 11/26/16 0550 11/25/16 0930 Imaging Last Impressions Abdomen/Pelvis CT 11/25/16 0000 Signed Impressions: Service Date/Time: Friday, November 25, 2016 11:36 - CONCLUSION: 1. Abnormal examination demonstrating moderate to severe diffuse intra-and extrahepatic biliary ductal dilatation extending to the ampulla. Etiology of this obstruction is not definitively identified on the CT exam. The proximal pancreatic duct is dilated, however, the pancreas otherwise is unremarkable without a definite pancreatic head mass or tail atrophy. No radiopaque gallstones or CBD stones are demonstrated. No definitive duodenal mass. Consider further evaluation with ERCP and possibly endoscopic ultrasound. 2. Ancillary findings, as above. Vinny Cordero MD A/P Problem List: (1) Choledocholithiasis ICD Codes: K80.50 - Calculus of bile duct without cholangitis or cholecystitis without obstruction Status: Acute Plan: 1. choledocholithiasis elevated lft in obstructive pattern s/p ercp. 1.5cm stone extracted ivf advance diet today per GI probably d/c tomorrow lft in AM (2) Obstructive jaundice ICD Codes: K83.8 - Other specified diseases of biliary tract Status: Acute Plan: above (3) Elevated LFTs ICD Codes: R79.89 - Other specified abnormal findings of blood chemistry Status: Acute Plan: - See above. (4) HTN (hypertension) ICD Codes: I10 - Essential (primary) hypertension Status: Chronic Plan: - Home meds continued - Monitor Hector Betancourt MD Nov 26, 2016 11:19
[2016-11-26 12:00] VITALS: BP 149/63; PULSE 71; RESP 18; TEMP 97.6; O2SAT 95
--- NOTE | 2016-11-26 14:49 | HHI.GIFU ---
Subjective Remarks Pt resting in bed, family at bedside. Feeling much better, pain and nausea improved, wants to eat and go home. (Geneva Huitron) Objective Vitals I&O Vital Signs Date Time Temp Pulse Resp B/P (MAP) Pulse Ox O2 Delivery O2 Flow Rate FiO2 11/26/16 12:00 97.6 71 18 149/63 (91) 95 11/26/16 08:00 97.6 69 16 134/67 (89) 94 11/26/16 06:45 19 11/26/16 04:00 98.6 72 18 117/58 (77) 96 11/26/16 00:00 98.4 74 18 121/57 (78) 96 11/25/16 20:00 99.0 77 18 113/62 (79) 96 11/25/16 18:30 98.9 79 20 108/59 (75) 98 Nasal Cannula 2 11/25/16 18:15 80 20 107/56 (73) 98 Nasal Cannula 2 11/25/16 18:00 82 20 109/58 (75) 98 Nasal Cannula 2 11/25/16 17:51 98.9 90 20 115/55 (75) 97 Nasal Cannula 2 I/O 11/25/16 11/25/16 11/25/16 11/26/16 11/26/16 11/26/16 07:00 15:00 23:00 07:00 15:00 23:00 Intake Total 1000 ml 300 ml 2000 ml Output Total 950 ml Balance 1000 ml 300 ml 1050 ml Intake IV Total 1000 ml 2000 ml Other 300 ml Output Urine Total 950 ml # Voids 2 2 # Bowel Movements 1 Laboratory Laboratory Tests Test 11/26/16 05:50 White Blood Count 7.5 Red Blood Count 4.03 Hemoglobin 12.2 Hematocrit 36.8 Mean Corpuscular Volume 91.5 Mean Corpuscular Hemoglobin 30.3 Mean Corpuscular Hemoglobin Concent 33.1 Red Cell Distribution Width 15.6 Platelet Count 276 Mean Platelet Volume 7.7 Neutrophils (%) (Auto) 74.2 Lymphocytes (%) (Auto) 16.5 Monocytes (%) (Auto) 7.3 Eosinophils (%) (Auto) 1.6 Basophils (%) (Auto) 0.4 Neutrophils # (Auto) 5.6 Lymphocytes # (Auto) 1.2 Monocytes # (Auto) 0.6 Eosinophils # (Auto) 0.1 Basophils # (Auto) 0.0 CBC Comment DIFF FINAL Differential Comment Total Bilirubin 8.9 Direct Bilirubin 6.8 Indirect Bilirubin 2.1 Aspartate Amino Transf (AST/SGOT) 482 Alanine Aminotransferase (ALT/SGPT) 901 Alkaline Phosphatase 547 Total Protein 5.9 Albumin 2.9 Imaging Last Impressions GI Procedure 11/25/16 0000 Signed Impressions: Service Date/Time: Friday, November 25, 2016 17:28 - CONCLUSION: ERCP as above. Andrés Carcamo MD Abdomen/Pelvis CT 11/25/16 0000 Signed Impressions: Service Date/Time: Friday, November 25, 2016 11:36 - CONCLUSION: 1. Abnormal examination demonstrating moderate to severe diffuse intra-and extrahepatic biliary ductal dilatation extending to the ampulla. Etiology of this obstruction is not definitively identified on the CT exam. The proximal pancreatic duct is dilated, however, the pancreas otherwise is unremarkable without a definite pancreatic head mass or tail atrophy. No radiopaque gallstones or CBD stones are demonstrated. No definitive duodenal mass. Consider further evaluation with ERCP and possibly endoscopic ultrasound. 2. Ancillary findings, as above. Vinny Cordero MD Physical Exam HEENT: PERRL; normocephalic; atraumatic; + Icterus CHEST: CTA CARDIAC: RRR ABDOMEN: Soft, nondistended, nontender; no hepatosplenomegaly; bowel sounds are present in all four quadrants. EXTREMITIES: No clubbing, cyanosis, or edema. SKIN: Normal; no rash; mild jaundice [employer]: No focal deficits; alert and oriented times three. (Geneva Huitron [facility]) Assessment and Plan Plan - Abdominal pain, N/V with Biliary obstruction on imaging. 1 week hx of epigastric pain, n/v, inability to tolerate po. She was seen by Dr. Harris and had EGD (11/17/16)----> reflux esophagitis in the distal esophagus, acute gastritis was found in the gastric antrum, the duodenal mucosa showed no abnormalities in the 2nd portion of the duodenum, retroflexed views revealed a hiatal hernia. Pathology pending. He then ordered CT Scan abdomen and pelvis (09/17/16 )---> No renal stones or hydronephrosis, induration in the subcutaneous fat at the left posterior lateral upper pelvic region at the level of the iliac crest which is likely from prior injury. This can be correlated with the patient's symptoms, colonic diverticular and a moderate amount of stool the colon. Mild hiatal hernia. She started Omeprazole 20mg po daily and Ranitidine 300mg po qhs, but had worsening of symptoms last night. She came to ER and was found to have LFTs elevated in obstructive pattern. CT Scan abdomen and pelvis (11/25/16)----> Abnormal examination demonstrating moderate to severe diffuse intra- and extrahepatic biliary ductal dilatation extending to the ampulla. Etiology of this obstruction is not defintely identified on the CT exam. The proximal pancreatic duct is dilated, however the pancreas otherwise is unremarkable without a definite pancreatic head mass or tail atrophy. No radiopaque gallstones or CBD stones are demonstrated. No definite duodenal mass. - Elevated LFTs, secondary to above. - GERD, HH. PPI - Asthma, HTN, Anxiety, Atherosclerosis, Hyperlipidemia, Hypothyroidism, OA per attending 11/26/16- s/p ERCP with sphincterotomy, stone extraction by balloon sweep. Pain and nausea improved. Tbil elevated but other LFTs trending down will adv diet PLAN: - low fat diet - rck LFTs - okay for d/c from GI standpoint if tolerates diet - supportive care - f/u with GI after d/c Pt seen by myself and Dr Jiménez and this note is written on her behalf (Geneva Huitron) Physician Comments seen, examined agree with above her bilirubin increased today possible post ERCP ampullary edema, we will observe until am if decreasing can be dc home in am general surgery consult op for possible cholecystectomy fu office 2-4 weeks repeat lfts 1 week post discharge us abdomen in 4 weks to fu on pancreatic and biliary ducts dilatation (Keyonna Jiménez MD) [place] Huitron Nov 26, 2016 14:49 Keyonna Jiménez MD Nov 26, 2016 15:50
[2016-11-26] MEDS: PANTOPRAZOLE SODIUM 40 MG VIAL IV PUSH SCH (14:57)
[2016-11-26 16:00] VITALS: BP 142/80; PULSE 67; RESP 16; TEMP 98.3; O2SAT 96
[2016-11-26] MEDS: MONTELUKAST SODIUM 10 MG TAB PO SCH (20:32)
[2016-11-26 21:30] VITALS: BP 139/81; PULSE 74; RESP 18; TEMP 98.7; O2SAT 96
[2016-11-27 00:40] VITALS: BP 129/80; PULSE 75; RESP 19; TEMP 97.9; O2SAT 97
[2016-11-27] MEDS: ACETAMINOPHEN 325 MG TAB PO PRN (04:39)
[2016-11-27 06:00] VITALS: BP 168/78; PULSE 62; RESP 17; TEMP 98; O2SAT 97
[2016-11-27] MEDS: SODIUM CHLOR 0.9% 1000 ML INJ 1,000 ML IV SCH (07:45)
[2016-11-27 08:00] VITALS: BP 142/67; PULSE 71; RESP 17; TEMP 97.7; O2SAT 96
[2016-11-27] MEDS: LOSARTAN 25 MG TAB PO SCH (08:30)
[2016-11-27] MEDS: LEVOTHYROXINE SODIUM 112 MCG TAB PO SCH (08:30)
[2016-11-27] MEDS: ESCITALOPRAM OXALATE 10 MG TAB PO SCH (08:31)
[2016-11-27] MEDS: ESTRADIOL 1 MG TAB PO SCH (08:31)
[2016-11-27 09:14] LABS: INDIRECT BILIRUBIN 1.2 MG/DL (0.0-0.8)
--- NOTE | 2016-11-27 09:33 | HHI.DCPOC ---
Discharge Care Plan Diagnosis: (1) Obstructive jaundice (2) Choledocholithiasis (3) HTN (hypertension) (4) Elevated LFTs Goals to Promote Your Health * To prevent worsening of your condition and complications * To maintain your health at the optimal level Directions to Meet Your Goals Take your medications as prescribed Follow your dietary instruction Follow activity as directed Keep your appointments as scheduled Take your immunizations and boosters as scheduled If your symptoms worsen call your PCP, if no PCP go to Urgent Care Center or Emergency Room Smoking is Dangerous to Your Health. Avoid second hand smoke Call the 24-hour hour crisis hotline for domestic abuse at Asha Teixeira Nov 27, 2016 09:33
--- NOTE | 2016-11-27 09:39 | HHI.PR ---
Subjective Remarks Pt is overall feeling better She is tolerating advanced diet Some minimal LUQ abd discomfort last night after eating but this was not the same pain she had previously and it did resolve on its own Afebrile Objective Vitals Vital Signs Date Time Temp Pulse Resp B/P (MAP) Pulse Ox O2 Delivery O2 Flow Rate FiO2 11/27/16 08:00 97.7 71 17 142/67 (92) 96 11/27/16 06:00 98.0 62 17 168/78 (108) 97 11/27/16 00:40 97.9 75 19 129/80 (96) 97 11/26/16 21:30 98.7 74 18 139/81 (100) 96 11/26/16 16:00 98.3 67 16 142/80 (100) 96 11/26/16 12:00 97.6 71 18 149/63 (91) 95 Result Diagram: 11/26/16 0550 11/25/16 0930 Other Results Laboratory Tests Test 11/26/16 05:50 11/27/16 08:05 White Blood Count 7.5 TH/MM3 Red Blood Count 4.03 MIL/MM3 Hemoglobin 12.2 GM/DL Hematocrit 36.8 % Mean Corpuscular Volume 91.5 FL Mean Corpuscular Hemoglobin 30.3 PG Mean Corpuscular Hemoglobin Concent 33.1 % Red Cell Distribution Width 15.6 % Platelet Count 276 TH/MM3 Mean Platelet Volume 7.7 FL Neutrophils (%) (Auto) 74.2 % Lymphocytes (%) (Auto) 16.5 % Monocytes (%) (Auto) 7.3 % Eosinophils (%) (Auto) 1.6 % Basophils (%) (Auto) 0.4 % Neutrophils # (Auto) 5.6 TH/MM3 Lymphocytes # (Auto) 1.2 TH/MM3 Monocytes # (Auto) 0.6 TH/MM3 Eosinophils # (Auto) 0.1 TH/MM3 Basophils # (Auto) 0.0 TH/MM3 CBC Comment DIFF FINAL Differential Comment Total Bilirubin 8.9 MG/DL 3.0 MG/DL Direct Bilirubin 6.8 MG/DL 1.8 MG/DL Indirect Bilirubin 2.1 MG/DL 1.2 MG/DL Aspartate Amino Transf (AST/SGOT) 482 U/L 248 U/L Alanine Aminotransferase (ALT/SGPT) 901 U/L 643 U/L Alkaline Phosphatase 547 U/L 482 U/L Total Protein 5.9 GM/DL 5.8 GM/DL Albumin 2.9 GM/DL 2.6 GM/DL Imaging Last Impressions Abdomen/Pelvis CT 11/25/16 0000 Signed Impressions: Service Date/Time: Friday, November 25, 2016 11:36 - CONCLUSION: 1. Abnormal examination demonstrating moderate to severe diffuse intra-and extrahepatic biliary ductal dilatation extending to the ampulla. Etiology of this obstruction is not definitively identified on the CT exam. The proximal pancreatic duct is dilated, however, the pancreas otherwise is unremarkable without a definite pancreatic head mass or tail atrophy. No radiopaque gallstones or CBD stones are demonstrated. No definitive duodenal mass. Consider further evaluation with ERCP and possibly endoscopic ultrasound. 2. Ancillary findings, as above. Vinny Cordero MD Objective Remarks General: NAD, AAox3 Chest: CTA Cardiac: Regular Abd: +BS, soft ND/NT Ext: No edema A/P Problem List: (1) Choledocholithiasis ICD Codes: K80.50 - Calculus of bile duct without cholangitis or cholecystitis without obstruction Status: Acute Plan: - Pt is a 81 y/o female with asthma, HTN, macular degeneration, and GERD. - She presented to the ED at [facility] on 11/25/16 for evaluation of abdominal pain with nausea/vomiting which began over a week ago - She underwent evaluation with EGD (11/17/16) which noted reflux esophagitis in the distal esophagus, acute gastritis was found in the gastric antrum, the duodenal mucosa showed no abnormalities in the 2nd portion of the duodenum, and a hiatal hernia. - She has been taking Omeprazole 20mg po daily and Ranitidine 300mg po qhs without improvement. - Her symptoms suddenly became worse the night prior to admission and was not able to keep anything down and therefore came to the ER for further evaluation. - CT Scan abd/pelvis in the ED noted moderate to severe diffuse intra- and extrahepatic biliary ductal dilatation extending to the ampulla, etiology of this obstruction is not definitively identified on the CT exam, also noted the proximal pancreatic duct is dilated, however the pancreas otherwise is unremarkable without a definite pancreatic head mass or tail atrophy. No radiopaque gallstones or CBD stones are demonstrated. No definite duodenal mass. - Pts LFTs were significantly elevated at admission with TBili 6.4, AST 886, ALT 1269, and AlkPhos 665. - Pt underwent ERCP on 11/25/16 --> a 1.5cm gallstone impacted in the ampulla which was removed by balloon after sphincterotomy - Pt has done well post-procedurally. - Her LFTs have been improving daily, labs today with Tbili 3.0, DBili 1.8, AST 248, ALT 643, AlkPhos 482. - She is tolerating her diet and previous abd pain has resolved. - Pt is stable for discharge to home today - She can followup with GI in 2 weeks with repeat labs - Pt will need to followup with her PCP, Dr. Morgan, in 1 week. (2) Obstructive jaundice ICD Codes: K83.8 - Other specified diseases of biliary tract Status: Acute Plan: above (3) Elevated LFTs ICD Codes: R79.89 - Other specified abnormal findings of blood chemistry Status: Acute Plan: - See above. (4) HTN (hypertension) ICD Codes: I10 - Essential (primary) hypertension Status: Chronic Plan: - Home meds continued - Monitor Assessment and Plan Patient examined. Assessment and plan formulated with Asha Teixeira PA-C. I agree with the above. choledocholithiasis. removal of 1.5 cm stone lft trending down alot of gas. add simthicone alka diet. d/c ivf. ambulate. d/c home later today if stable. f/u Asha Moore Nov 27, 2016 09:39 Hector Betancourt MD Nov 27, 2016 09:52
[2016-11-27] MEDS ORDERED: SIMETHICONE 125 MG CHEWABLE TAB PO ONE (09:45)
[2016-11-27 12:00] VITALS: BP 150/70; PULSE 74; RESP 16; TEMP 98; O2SAT 95
[2016-11-27] MEDS: PANTOPRAZOLE SODIUM 40 MG VIAL IV PUSH SCH (13:20)
[2016-11-27] MEDS ORDERED: SIMETHICONE 125 MG CHEWABLE TAB PO SCH (14:00)
--- NOTE | 2016-12-01 07:40 | PD ---
Physical Exam Date Seen by Provider: Nov 25, 2016 Time Seen by Provider: 10:00 Narrative I saw this patient with Dr. Chinyere Dunaway, family practice resident. This is a 81- year-old female who presents with nausea vomiting and epigastric pain. The patient was seen a few days earlier by Dr. Latif performed an endoscopy. At that time they noted that she had a hiatal hernia. The patient states that despite the medicines they prescribed for the hiatal hernia, she still having nausea vomiting and pain. There is no reported fevers. Data Data Orders Orders Complete Blood Count With Diff (11/25/16 09:27) Comprehensive Metabolic Panel (11/25/16 09:27) Lipase (11/25/16 09:27) Sodium Chlor 0.9% 1000 Ml Inj (Ns 1000 M (11/25/16 09:45) Ct Abd/Pel W Iv Contrast(Rout) (11/25/16 ) Oral Contrast - Adult (11/25/16 09:51) Diatrizoate Liq ( Gastroview Liq) (11/25/16 09:56) Prochlorperazine Inj (Compazine Inj) (11/25/16 10:30) Prochlorperazine Inj (Compazine Inj) (11/25/16 10:45) Iohexol 350 Inj (Omnipaque 350 Inj) (11/25/16 09:00) Diet Npo Except Meds (11/25/16 Lunch) Consent (11/25/16 12:42) Consult Gastroenterology (11/25/16 ) Admit To Inpatient (11/25/16 ) Inpatient Certification (11/25/16 ) Hepatic Functional Panel (11/26/16 06:00) Activity Oob Ad Sussy (11/25/16 14:08) Vital Signs (Adult) MEI.Q4H (11/25/16 14:08) Scd Bilateral/Knee High MEI.QSHIFT (11/25/16 14:08) Admit Order (Ed Use Only) (11/25/16 14:09) Labs Laboratory Tests Test 11/25/16 09:30 White Blood Count 8.3 TH/MM3 Red Blood Count 4.49 MIL/MM3 Hemoglobin 13.8 GM/DL Hematocrit 41.1 % Mean Corpuscular Volume 91.5 FL Mean Corpuscular Hemoglobin 30.8 PG Mean Corpuscular Hemoglobin Concent 33.7 % Red Cell Distribution Width 15.7 % Platelet Count 326 TH/MM3 Mean Platelet Volume 8.1 FL Neutrophils (%) (Auto) 76.7 % Lymphocytes (%) (Auto) 12.9 % Monocytes (%) (Auto) 7.8 % Eosinophils (%) (Auto) 1.8 % Basophils (%) (Auto) 0.8 % Neutrophils # (Auto) 6.3 TH/MM3 Lymphocytes # (Auto) 1.1 TH/MM3 Monocytes # (Auto) 0.6 TH/MM3 Eosinophils # (Auto) 0.1 TH/MM3 Basophils # (Auto) 0.1 TH/MM3 CBC Comment DIFF FINAL Differential Comment Blood Urea Nitrogen 13 MG/DL Creatinine 0.85 MG/DL Random Glucose 129 MG/DL Total Protein 7.6 GM/DL Albumin 3.6 GM/DL Calcium Level 9.6 MG/DL Alkaline Phosphatase 665 U/L Aspartate Amino Transf (AST/SGOT) 886 U/L Alanine Aminotransferase (ALT/SGPT) 1269 U/L Total Bilirubin 6.4 MG/DL Sodium Level 133 MEQ/L Potassium Level 4.0 MEQ/L Chloride Level 98 MEQ/L Carbon Dioxide Level 27.7 MEQ/L Anion Gap 7 MEQ/L Estimat Glomerular Filtration Rate 65 ML/MIN Lipase 84 U/L MDM Medical Record Reviewed: Yes Supervised Visit with TOM: No Differential Diagnosis Pancreatitis versus cholecystitis versus GERD versus peptic ulcer disease Narrative Course This is a 81-year-old female who presents with epigastric pain with associated nausea vomiting. The patient had a recent endoscopy that showed a hiatal hernia. The patient has no fevers, chills. The patient's AST, ALT, alkaline phosphatase, bilirubin, are all elevated. Lipase is within normal limits. CT scan shows dilatation of the intra-and extrahepatic bile ducts. There is no obvious stone noted. Given this, the patient will be admitted to the medicine service. [facility] There is also a consult with Dr. Harris's group. She'll be continued nothing by mouth. She'll need an ERCP. Diagnosis Primary Impression: Biliary obstruction Additional Impressions: Elevated LFTs HTN (hypertension) Admitting Information Admitting Physician Requests: Admit Patient Instructions: Liver Profile (GEN), Gastroesophageal Reflux Disease (GEN ) Roque Bean MD Dec 01, 2016 07:40
== END 2016-11-27 15:15 | disposition home or self-care (01) | DRG 446 ==
LOC: NEPC 08:59 → NEDA 14:11 → N05A 16:05
PROVIDERS: ADMIT Hospitalist; ATTEND Hospitalist
PROC: 0FC98ZZ Extirpation of Matter from Common Bile Duct, Via Natural or Artificial Opening Endoscopic (ICD-10-PCS; principal; 2016-11-25 17:00)
DX: K80.51 Calculus of bile duct without cholangitis or cholecystitis with obstruction (principal); K86.89 Other specified diseases of pancreas; I10 Essential (primary) hypertension; E03.9 Hypothyroidism, unspecified; J45.909 Unspecified asthma, uncomplicated; K44.9 Diaphragmatic hernia without obstruction or gangrene; K21.0 Gastro-esophageal reflux disease with esophagitis; H35.30 Unspecified macular degeneration; F41.9 Anxiety disorder, unspecified; E78.5 Hyperlipidemia, unspecified; M19.90 Unspecified osteoarthritis, unspecified site; Z88.1 Allergy status to other antibiotic agents; Z88.6 Allergy status to analgesic agent
CPT/HCPCS: 74177; 74330; 80053; 80076; 83690; 85025; 96361; 96374; C1769; C9113; J0780; J2250; J2370; J3010; J7030; Q9963; Q9967

== ENCOUNTER → 2016-12-22 | Outpatient (CLI) | payer MEDICARE ==
[~2016-12-22] VITALS: Ht 165.1 cm; Wt 80.6 kg
[~2016-12-22] MED LIST changes: -BUPR100CR PO; +BUPR100T4 PO; +CHLORHEXIDINE GLUCONATE 2 % 1 PACK (2 CLOTHS) TOPICAL PRN; +DO NOT ADM ANY ANTICOAGULANT DRUGS PRN; +ESTR2TAB PO; +GLUC100013 PO; -GLUC500C3 PO; +INSULIN HUMAN REGULAR 1,000 UNITS/10 ML VIAL SQ PRN; +IPRA17I INH; +LACTATED RINGER'S 1000 ML IV PRN; -LEVO100T5 PO; +LEVO112T2 PO; +METOPROLOL TARTRATE 25 MG TAB PO PRN; +MONT10TA2 PO; -MULT1CHW70 PO; +POVIDONE IODINE 5% (ANTISEPSIS KIT) 4 APPLICATIONS EACH NARE PRN; +RANI150T PO; +SODIUM CHLORID 0.9% 500 ML IV PRN; +VITA2000 PO; -estratest PO
--- NOTE | 2016-12-22 13:32 | PD.PROCEDR ---
GI Procedure REFERRING PHYSICIAN Dr. Randolph PROCEDURE PERFORMED ERCP with balloon extraction INDICATION FOR PROCEDURE Choledocholithiasis PROCEDURE: The procedure, risks and benefits were discussed with Ms. Torres and informed consent was obtained. Anesthesia sedated her with Diprivan. She was placed in the left lateral decubitus position. ERCP: Patient was placed in a prone position. The Pentax videoscope was introduced through the oropharynx and advanced to the second portion of the duodenum where the ampula was identified. FINDINGS: The ampulla was identified this appeared to be unremarkable except for the fact that it has had a prior sphincterotomy we were able to obtain easy cannulation of the common bile duct which appeared to be mildly dilated with multiple filling defects the intrahepatics were unremarkable 6 stones were removed using initially an 8 mm balloon then a 12 mm balloon then an obstructive cholangiogram appeared to show no further filling defects and the procedure was terminated ESTIMATED BLOOD LOSS: None SPECIMENS REMOVED: None COMPLICATIONS: None IMPRESSION: Choledocholithiasis PLAN: Patient follow-up with GI in 3-4 weeks Alex Schulte MD Dec 22, 2016 13:32
--- NOTE | 2016-12-22 14:08 | RADRPT ---
EXAM DATE/TIME: 12/22/2016 13:06 [place] COMPARISON: GI LAB ERCP, November 25, 2016, 17:28. INDICATIONS : Stone removal from CBD. FLUORO TIME: 5.75 minutes IMAGE COUNT: 6 CONTRAST: Instilled by Ordering Physician MEDICAL HISTORY : Hernia, hiatal. Hypertension. Asthma. SURGICAL HISTORY : Hysterectomy.Sphincterotomy. ENCOUNTER: Initial ACUITY: 1 day PAIN SCORE: Non-responsive. LOCATION: Right upper quadrant FINDINGS: An ERCP was performed by the ordering physician. The images demonstrates contrast filling defects in the common bile duct. Common bile duct is appear to be dilated. CONCLUSION: ERCP as above. Harry Wood MD on December 22, 2016 at 14:06 Board Certified Radiologist. This report was verified electronically.
[2016-12-22 14:49] VITALS: BP 156/69; PULSE 57; RESP 18; TEMP 98.4; O2SAT 100
== END ==
LOC: HSDC 10:08
PROVIDERS: ATTEND Internal Medicine Gastroenterology
DX: K80.70 Calculus of gallbladder and bile duct without cholecystitis without obstruction (principal); I10 Essential (primary) hypertension; J44.9 Chronic obstructive pulmonary disease, unspecified; K44.9 Diaphragmatic hernia without obstruction or gangrene
CPT/HCPCS: 00740; 43264; 74330; J7120

== ENCOUNTER → 2017-01-03 | Day surgery (SDC) | payer MEDICARE ==
[~2017-01-03] VITALS: Ht 165.1 cm; Wt 80.8 kg
[~2017-01-03] MED LIST changes: +*ONDANSETRON 4 MG VIAL PERIprocedural Use ONLY ONE; +ACETAMINOPHEN 1000 MG/100 ML 100 ML IV ONE; +ACETAMINOPHEN 1000 MG/100 ML 100 ML IV SCH; +BUPIVACAINE/EPINEPHRINE 0.25% PF 30 ML VIAL ONE; +DEXAMETHASONE SOD PHOS 4 MG/ML VIAL IV ONE; +GLYCOPYRROLATE 1 MG/5 ML SYRINGE IV PUSH ONE; +LIDOCAINE HCL 1% PF 5 ML SYRINGE OTHER ONE; +MORPHINE SULFATE 4 MG/ML INJ IV PUSH PRN; +NEOSTIGMINE 3 MG/3 ML SYR IV ONE; +ONDANSETRON HCL 4 MG/2 ML VIAL IV PUSH ONE; +ONDANSETRON HCL 4 MG/2 ML VIAL IV PUSH PRN; +PROPOFOL 200 MG/20 ML AMP IV ONE; +ROCURONIUM INJ 50 MG/5 ML SYRINGE IV PUSH ONE; +SODIUM CHLORIDE 0.9% FLUSH 10 ML FLUSH IV FLUSH PRN; +SODIUM CHLORIDE 0.9% FLUSH 10 ML FLUSH IV FLUSH SCH; +ceFAZolin 2 GM PREMIX 50 ML IV SCH; +ceFAZolin 2 GM PREMIX 50 ML ONE; +ePHEDrine/NS 25 MG/5 ML SYR IV ONE; +oxyCODONE/ACETAMINOPHEN 5 MG/325 MG TAB PO PRN
--- NOTE | 2017-01-03 14:01 | PD.OP ---
cc: Keyshawn Randolph MD Operative Report Date of Surgery: Jan 03, 2017 Preoperative Diagnosis: Chronic cholecystitis and cholelithiasis Postoperative Diagnosis: Chronic cholecystitis and cholelithiasis Procedure: Laparoscopic cholecystectomy Anesthesia: General endotracheal Surgeon: Keyshawn Randolph Auto Customize Painter(s): Rosy Aponte CST Operation and Findings: Operative findings: The patient had a chronically diseased-appearing gallbladder which was quite thickened and had large stones within it. It had adhesions along its entire length. The cystic duct was seen to be grossly enlarged as expected after 2 previous ERCPs. No other abnormalities were noted. Operative procedure: The patient was brought to the operating room and after satisfactory general endotracheal anesthesia was obtained, the abdomen was prepped and draped in usual sterile fashion. 0.5% Marcaine with epinephrine was used after the skin for local anesthesia. Small incision was made above the umbilicus and a 5 mm trocar was inserted into the peritoneal cavity under direct visualization. The abdomen was distended to 15 mmHg using carbon dioxide after which the camera was reinserted and visceral injury inspected for , with none being identified. Under direct visualization a 12 port and a 5 port placed in the upper abdomen. The fundus the gallbladder was grasped retracted superiorly over the right lobe of the liver after which the adhesions were taken down bluntly with a Harmonic scalpel used for hemostasis. Jordan's pouch was cleared of adhesions and grasped and retracted inferiorly and laterally placing tension on the hepatoduodenal ligament. Blunt dissection was then carried out to identify the cystic artery and cystic duct which were identified without major problem. The critical view was thus obtained. Once the critical view been obtained, the cystic artery was divided near structures with the gallbladder with a Harmonic scalpel. Due to the thickness of the cystic duct was decided take the gallbladder down retrograde which was accomplished with the Harmonic scalpel. Using 2 separate Vicryl Lapra-Ty's the cystic duct was secured near structures with the gallbladder. The junction of the gallbladder and cystic duct was then divided with the Harmonic scalpel. The gallbladder is placed within an Endo Catch bag and brought through the upper midline incision which was necessarily enlarged to allow egress of the gallbladder within the bag. The gallbladder was then passed for permanent pathology. The trocar was replaced within the peritoneal cavity and the liver bed inspected and found to be hemostatic. The cystic duct and cystic artery stumps were both inspected and found to be intact with no leakage of bile or blood. The carbon dioxide was then vented as completely as possible the atmosphere after which the ports were removed and the larger fascial defect was closed with interrupted 0 Vicryl sutures. The skin incisions were then closed with interrupted 4-0 Monocryl subcutaneous stitches. Steri-Strips were applied and the patient was then awakened and taken from the operating room, in satisfactory condition, having tolerated the procedure problem. Estimated blood loss was less than 15 mL's. The instrument, sponge, needle counts were reported as being correct 2 at the end procedure. Keyshawn Randolph MD Jan 03, 2017 14:01
[2017-01-03 16:26] VITALS: BP 142/71; PULSE 68; RESP 20; TEMP 98; O2SAT 98
== END | disposition home or self-care (01) ==
LOC: HSDC 10:07
PROVIDERS: ATTEND Surgery
DX: K80.00 Calculus of gallbladder with acute cholecystitis without obstruction (principal)
CPT/HCPCS: 00790; 47562; 88304; J0131; J0690; J1100; J2405; J2710; J3010